=== PATIENT | female | born 1945 | race Caucasian/White ===

== ENCOUNTER 2018-01-02 17:34 | Emergency (ER) | payer MEDICARE, BC ==
[2018-01-02 18:27] VITALS: BP 187/86
--- NOTE | 2018-01-02 18:37 | EDM.PDOC ---
ED HPI GENERAL MEDICAL PROBLEM - General Chief Complaint: Lower Extremity Injury/Pain Stated Complaint: L HIP INJURY Time Seen by Provider: 01/02/18 18:30 Source of Information: Reports: Patient History Limitations: Reports: No Limitations - History of Present Illness INITIAL COMMENTS - FREE TEXT/NARRATIVE: 72-year-old female slipped on a wet floor 5 hours ago striking her left hip on the floor. She continued to ambulate but is having increased pain and swelling so wanted it checked out. No other injury. Onset: Sudden Duration: Hour(s): (5 hours ago) Location: Reports: Lower Extremity, Left Severity: Moderate Worsens with: Reports: Movement Context: Reports: Trauma Associated Symptoms: Reports: No Other Symptoms left hip Pain Score (Numeric/FACES): 2 - Related Data Allergies Allergy/AdvReac Type Severity Reaction Status Date / Time latex Allergy Swelling Verified 01/02/18 18:26 Penicillins Allergy Rash Verified 01/02/18 18:26 Sulfa (Sulfonamide Allergy Shaking Verified 01/02/18 18:26 Antibiotics) band aid Allergy Rash Uncoded 01/02/18 18:26 Home Meds: Home Meds Aspirin [Adult Low Dose Aspirin EC] 81 mg PO DAILY 07/21/14 [History] Biotin 10 mg PO DAILY 07/21/14 [History] Calcium Carbonate/Vitamin D3 [Oyster Shell 500 mg + Vit D] 2 tab PO DAILY [History] Cetirizine [ZyrTEC] 10 mg PO DAILY PRN 07/21/14 [History] Estrogens, Conjugated [Premarin] 0.5 tab PO DAILY 07/21/14 [History] Multivitamin [Multivitamins] 1 each PO DAILY 07/21/14 [History] Ackerman-3 Fatty Acids [Ackerman-3] 2,000 tab PO BID 07/21/14 [History] Rutin/Hesp/Bioflav/C/Herb#196 [Bioflex] 1 each PO BID 07/21/14 [History] Simvastatin 40 mg PO DAILY 07/21/14 [History] Cholecalciferol (Vitamin D3) [Vitamin D] 400 units PO DAILY 07/11/16 [History] Ketoconazole [Nizoral 2% Crm] 1 applic TOP BID 07/11/16 [History] Triamcinolone Acetonide [Kenalog 0.1% Crm] 0 gm TOP BID 07/11/16 [History] Hydrochlorothiazide 25 mg PO DAILY 07/13/16 [History] Ubidecarenone [Co Q-10] 10 mg PO DAILY 01/02/18 [History] Past Medical History HEENT History: Reports: Allergic Rhinitis, Cataract Cardiovascular History: Reports: Arrhythmia, High Cholesterol, Hypertension Gastrointestinal History: Reports: Diverticulosis Genitourinary History: Reports: None [employer] History: Reports: Fibroids Hematologic History: Reports: Anemia, Blood Transfusion(s) - Infectious Disease History Infectious Disease History: Reports: Chicken Pox, Shingles - Past Surgical History HEENT Surgical History: Reports: None Cardiovascular Surgical History: Reports: None GI Surgical History: Reports: Colonoscopy Female Surgical History: Reports: Hysterectomy Social & Family History - Tobacco Use Smoking Status *Q: Former Smoker Years of Tobacco use: 10 Packs/Tins Daily: 0.5 Used Tobacco, but Quit: Yes Month Tobacco Last Used: November Second Hand Smoke Exposure: No - Recreational Drug Use Recreational Drug Use: No Review of Systems - Review of Systems Review Of Systems: See Below Constitutional: Denies: Fever Respiratory: Denies: Shortness of Breath Cardiovascular: Denies: Chest Pain GI/Abdominal: Denies: Abdominal Pain, Nausea, Vomiting Skin: Reports: Other (Patient has a bandage over a healing abrasion on the lower left lyles). Denies: Bruising Neurological: Denies: Paresthesia ED EXAM, GENERAL - Physical Exam Exam: See Below Exam Limited By: No Limitations General Appearance: Alert, No Apparent Distress Respiratory/Chest: No Respiratory Distress GI/Abdominal: Non-Tender Extremities: Other (Exam is otherwise limited to the left lower extremity. She has tenderness over the lateral aspect of the greater trochanter with swelling of the soft tissue typical of a hematoma. Passively she can flex the hip, and tolerates internal and external rotation with very minimal discomfort. Most of the pain is with palpation directly over the hematoma) Course - Vital Signs Last Recorded V/S: Last Vital Signs Temp 97.5 F 01/02/18 18:31 Pulse 85 01/02/18 18:31 Resp 16 01/02/18 18:31 BP 187/86 H 01/02/18 18:31 Pulse Ox 97 01/02/18 18:31 - Orders/Labs/Meds Orders: Active Orders 24 hr Category Date Time Status Hip Min 2V or 3V Lt [CR] Stat Exams 01/02/18 18:34 Taken Meds: Medications Discontinued Medications Generic Name Dose Route Start Last Admin Trade Name Maximo PRN Reason Stop Dose Admin Bacitracin 1 dose 01/02/18 19:02 01/02/18 19:08 Bacitracin Oint 1 Gm TOP 01/02/18 19:03 1 dose ONETIME ONE Administration - Re-Assessments/Exams Free Text/Narrative Re-Assessment/Exam: 01/02/18 18:37 A left hip x-ray was obtained. 01/02/18 19:04 Hip x-rays negative. Patient was encouraged to ice down the area and increase activity as tolerated, recheck next week if the swelling doesn't improve. She is going to take a regular dose of naproxen or ibuprofen and she was given 6 hydrocodone for extra pain control. 01/02/18 19:05 She also requested a dressing change on her lower leg injury, it was covered with bacitracin and bandaged. Departure - Departure Time of Disposition: 19:24 Disposition: Home, Self-Care 01 Condition: Good Clinical Impression: Contusion of hip, left Qualifiers: Encounter type: initial encounter Qualified Code(s): S70.02XA - Contusion of left hip, initial encounter Hematoma of hip Qualifiers: Encounter type: initial encounter Laterality: left Qualified Code(s): S70.02XA - Contusion of left hip, initial encounter - Discharge Information Instructions: Hematoma, [facility] Referrals: Jordan Shelley MD [Primary Care Provider] - Forms: ED Department Discharge Care Plan Goals: Increase activity as tolerated, a regular dose of ibuprofen or naproxen should help. Ice to the swollen area for the next 2 days may help the swelling. Use the stronger pain medication as directed if needed. Recheck in 4-6 days if not improving satisfactorily, you can always return sooner if worsening or concerns. - My Orders Last 24 Hours: My Active Orders 01/02/18 18:34 Hip Min 2V or 3V Lt [CR] Stat - Assessment/Plan Last 24 Hours: My Active Orders 01/02/18 18:34 Hip Min 2V or 3V Lt [CR] Stat
[2018-01-02] MEDS ORDERED: Bacitracin Oint 1 GM U/D Packet TOP ONE (19:02)
--- NOTE | 2018-01-03 08:39 | CR ---
Hip Min 2V or 3V Lt HISTORY: fall, pain FINDINGS: No acute fracture or dislocation is identified. Bony architecture and joint spaces are preserved. S oft tissues are unremarkable. IMPRESSION: No acute left hip abnormality identified.
== END 2018-01-02 19:26 | disposition home or self-care (01) ==
LOC: JP.ED 17:34
DX: S70.02XA Contusion of left hip, initial encounter (principal); E78.00 Pure hypercholesterolemia, unspecified; I10 Essential (primary) hypertension; Z91.040 Latex allergy status; Z88.0 Allergy status to penicillin; Z88.2 Allergy status to sulfonamides; Z79.82 Long term (current) use of aspirin; Z79.899 Other long term (current) drug therapy; Z87.891 Personal history of nicotine dependence; W01.0XXA Fall on same level from slipping, tripping and stumbling without subsequent striking against object, initial encounter
CPT/HCPCS: 73502-26-LT; 73502-LT; 99284

== ENCOUNTER 2019-01-17 06:27 | Day surgery (SDC) | payer MEDICARE, BC ==
[2019-01-17] MEDS ORDERED: Lactated Ringers 1,000 ML IV SCH (06:40)
[2019-01-17] MEDS ORDERED: fentaNYL 100 MCG/2 ML SDV ONE (07:19)
[2019-01-17] MEDS ORDERED: Midazolam 1 MG/ML 2 ML SDV ONE (07:19)
[2019-01-17] MEDS ORDERED: Propofol 200 MG/20 ML SDV ONE (07:19)
[2019-01-17 09:15] VITALS: BP 157/77
--- NOTE | 2019-01-17 14:16 | OR ---
DATE OF PROCEDURE: 01/17/2019 PREOPERATIVE DIAGNOSIS: Strong family history of colon cancer in sister and brother. POSTOPERATIVE DIAGNOSES: Diverticulosis, strong family history of colon cancer in sister and brother. PROCEDURE: Colonoscopy to the cecum. ANESTHESIA: IV anesthesia with monitored anesthesia care. INDICATION: This 73-year-old white female is here for a colonoscopy because of a strong family history of colon cancer, both her brother and sister have had colon cancer. Her sister of it. She says her last colonoscopic exam was done 5 years ago. I counseled her for the procedure including risks and alternatives and she gave her informed consent to proceed. DESCRIPTION OF PROCEDURE: The patient was placed in the left lateral decubitus position. IV anesthesia was administered by the Anesthesia Service. Time-out was held. A rectal exam was performed which was unremarkable. The flexible video Olympus colonoscope was introduced through her anus, up her rectum, and out her colon, all the way to the cecum. En route, we saw multiple left-sided diverticula and also a few scattered right-sided diverticula. Once the cecum was reached, the scope was slowly withdrawn examining the mucosa throughout. No additional mucosal abnormalities were noted. The scope was retroflexed in the rectum with the distal rectum appearing unremarkable. The scope was straightened and removed. She tolerated the procedure well. Matheus Powell MD /[id number]
== END 2019-01-17 09:40 | disposition home or self-care (01) ==
LOC: JP.SDS 06:27
PROVIDERS: ATTEND Surgery
DX: Z12.11 Encounter for screening for malignant neoplasm of colon (principal); K57.30 Diverticulosis of large intestine without perforation or abscess without bleeding; I10 Essential (primary) hypertension; E78.5 Hyperlipidemia, unspecified; Z88.2 Allergy status to sulfonamides; Z88.0 Allergy status to penicillin; Z91.040 Latex allergy status; Z80.0 Family history of malignant neoplasm of digestive organs
CPT/HCPCS: G0105; J2250; J2704; J3010; J7120

== ENCOUNTER 2023-12-10 09:24 | Day surgery (SDC) | payer MEDICARE, BC ==
[2023-12-10] MEDS ORDERED: Lactated Ringers 1,000 ML IV SCH (10:30)
[2023-12-10] MEDS ORDERED: fentaNYL 50 MCG/ML SDV ONE (10:41)
[2023-12-10] MEDS ORDERED: Propofol 200 MG/20 ML SDV ONE (10:41)
[2023-12-10 13:02] VITALS: BP 163/58; PULSE 82
== END 2023-12-10 13:12 | disposition home or self-care (01) ==
LOC: JP.SDS 09:24
PROVIDERS: ATTEND Student in an Organized Health Care Education/Training Program
DX: Z12.11 Encounter for screening for malignant neoplasm of colon (principal); K63.5 Polyp of colon; K57.30 Diverticulosis of large intestine without perforation or abscess without bleeding; I10 Essential (primary) hypertension
CPT/HCPCS: 88305; J2704; J3010; J7120